=== PATIENT | male | born 1940 | race Caucasian/White ===

== ENCOUNTER 2017-03-29 17:20 | Emergency (ER) | payer MEDICARE ==
[2017-03-29] MEDS ORDERED: Ketorolac 60 MG/2 ML SDV IM ONE (18:24)
--- NOTE | 2017-03-29 18:25 | EDM.PDOC ---
ED HPI GENERAL MEDICAL PROBLEM - General Chief Complaint: Respiratory Problem Stated Complaint: FEVER/FROM CLINIC Time Seen by Provider: 03/29/17 18:14 Source of Information: Reports: Patient, RN Notes Reviewed History Limitations: Reports: No Limitations - History of Present Illness INITIAL COMMENTS - FREE TEXT/NARRATIVE: 76-year-old gentleman presents emergency department today complaint of fever and body aches he's been ill just since this morning he has had a cough denies shortness of breath denies any tickborne illness Headache Pain Score (Numeric/FACES): 4 - Related Data Allergies Allergy/AdvReac Type Severity Reaction Status Date / Time oxycodone [From Percodan] Allergy Cannot Verified 03/29/17 17:49 Remember Home Meds: Home Meds Insulin Glargine,Hum.Rec.Anlog [Lantus Solostar] 46 units SUBCUT DAILY 06/02/16 [History] Losartan [Cozaar] 50 mg PO DAILY 06/02/16 [History] Metoprolol Succinate [Toprol XL] 50 mg PO DAILY 06/02/16 [History] atorvaSTATin [Lipitor] 20 mg PO DAILY 06/02/16 [History] metFORMIN [Glucophage XR] 500 mg PO BID 06/02/16 [History] Apixaban [Eliquis] 1 tab PO DAILY 03/29/17 [History] Past Medical History HEENT History: Reports: Impaired Vision Cardiovascular History: Reports: Afib, High Cholesterol Musculoskeletal History: Reports: Fracture Other Musculoskeletal History: colar bone Neurological History: Reports: Neuropathy, Peripheral Endocrine/Metabolic History: Reports: Diabetes, Type II Dermatologic History: Reports: Decubitus Ulcer - Infectious Disease History Infectious Disease History: Reports: Chicken Pox, Measles, Mumps - Past Surgical History HEENT Surgical History: Reports: Tonsillectomy GI Surgical History: Reports: Colonoscopy Dermatological Surgical History: Reports: Skin Biopsy Social & Family History - Tobacco Use Smoking Status *Q: Never Smoker Second Hand Smoke Exposure: No - Caffeine Use Caffeine Use: Reports: Coffee, Soda - Alcohol Use Days Per Week of Alcohol Use: 2 Number of Drinks Per Day: 1 Total Drinks Per Week: 2 - Recreational Drug Use Recreational Drug Use: No ED ROS GENERAL - Review of Systems Review Of Systems: See Below Constitutional: Reports: Fever, Chills, Weakness, Other (Body aches ) HEENT: Reports: No Symptoms Respiratory: Reports: Wheezing Cardiovascular: Reports: No Symptoms GI/Abdominal: Reports: No Symptoms : Reports: No Symptoms Musculoskeletal: Reports: No Symptoms Skin: Reports: No Symptoms Neurological: Reports: No Symptoms ED EXAM, GENERAL - Physical Exam Exam: See Below Free Text/Narrative:: General: Male, ill-appearing, alert and oriented x3 HEENT: head is atraumatic normocephalic, eyes pupils equal round reactive to light, sclera clear no conjunctivitis appreciated. Ears tympanic membranes clear and [place] landmarks and light reflex are present bilaterally canals are clear. Nose no septal deviation, nares are clear, no blood present. Mouth mucosa is moist and pink no erythema or exudate noted in soft palate, tongue is midline uvula is midline , dentition is intact. Neck: Supple no thyromegaly no tracheal deviation. Nodes: Cervical nodes subclavicular nodes nontender no palpable lymphadenopathy noted. Lungs: clear to auscultation bilaterally with symmetrical respirations, no adventitious noise appreciated. CV: Irregularly irregular rate and rhythm S1 and S2 appreciated no murmurs rubs or gallops noted. Abdomen: Soft, nontender, no palpable masses or organomegaly appreciated, no distention no guarding bowel sounds are present, . Neuro: Cranial nerves II through XII grossly intact Skin: Warm and dry, intact Extremities: No lower extremity edema appreciated, Course - Vital Signs Last Recorded V/S: Last Vital Signs Temp 101.1 F H 03/29/17 18:03 Pulse 98 03/29/17 18:03 Resp 16 03/29/17 18:03 BP 147/82 H 03/29/17 18:03 Pulse Ox 93 L 03/29/17 18:03 - Orders/Labs/Meds Orders: Active Orders 24 hr Category Date Time Status Chest 2V [CR] Urgent Exams 03/29/17 18:21 Taken Labs: Laboratory Tests 03/29/17 03/29/17 03/29/17 Range/Units 18:30 18:30 18:30 WBC 18.3 H (4.5-11.0) K/uL RBC 4.84 (4.30-5.90) M/uL Hgb 15.0 (12.0-15.0) g/dL Hct 44.8 (40.0-54.0) % MCV 93 (80-98) fL MCH 31 (27-31) pg MCHC 34 (32-36) % Plt Count 177 (150-400) K/uL Neut % (Auto) 88 H (36-66) % Lymph % (Auto) 5 L (24-44) % [place] % (Auto) 7 H (2-6) % Eos % (Auto) 0 L (2-4) % Baso % (Auto) 0 (0-1) % Sodium 139 L (140-148) mmol/L Potassium 3.8 (3.6-5.2) mmol/L Chloride 103 (100-108) mmol/L Carbon Dioxide 32 (21-32) mmol/L Anion Gap 7.8 (5.0-14.0) mmol/L BUN 18 (7-18) mg/dL Creatinine 1.3 (0.8-1.3) mg/dL Est Cr Clr Drug Dosing 58.68 mL/min Estimated GFR (MDRD) 54 L (>60) Glucose 173 H (74-106) mg/dL Lactic Acid 1.1 (0.4-2.0) mmol/L Calcium 9.0 (8.5-10.1) mg/dL Total Bilirubin 1.3 H (0.2-1.0) mg/dL AST 26 (15-37) U/L ALT 26 (12-78) U/L Alkaline Phosphatase 104 (46-116) U/L Total Protein 7.1 (6.4-8.2) g/dL Albumin 3.7 (3.4-5.0) g/dL Globulin 3.4 (2.3-3.5) g/dL Albumin/Globulin Ratio 1.1 L (1.2-2.2) Urine Color Urine Appearance Urine pH (4.5-8.0) Ur Specific [place] (1.008-1.030) Urine Protein (NEGATIVE) mg/dL Urine Glucose (UA) (NEGATIVE) mg/dL Urine Ketones (NEGATIVE) mg/dL Urine Occult Blood (NEGATIVE) Urine Nitrite (NEGAITVE) Urine Bilirubin (NEGATIVE) Urine Urobilinogen (NORMAL) mg/dL Ur Leukocyte Esterase (NEGATIVE) Urine RBC (0-5) Urine WBC (0-5) Ur Epithelial Cells Amorphous Sediment Urine Bacteria Urine Mucus 03/29/17 Range/Units 18:33 WBC (4.5-11.0) K/uL RBC (4.30-5.90) M/uL Hgb (12.0-15.0) g/dL Hct (40.0-54.0) % MCV (80-98) fL MCH (27-31) pg MCHC (32-36) % Plt Count (150-400) K/uL Neut % (Auto) (36-66) % Lymph % (Auto) (24-44) % [place] % (Auto) (2-6) % Eos % (Auto) (2-4) % Baso % (Auto) (0-1) % Sodium (140-148) mmol/L Potassium (3.6-5.2) mmol/L Chloride (100-108) mmol/L Carbon Dioxide (21-32) mmol/L Anion Gap (5.0-14.0) mmol/L BUN (7-18) mg/dL Creatinine (0.8-1.3) mg/dL Est Cr Clr Drug Dosing mL/min Estimated GFR (MDRD) (>60) Glucose (74-106) mg/dL Lactic Acid (0.4-2.0) mmol/L Calcium (8.5-10.1) mg/dL Total Bilirubin (0.2-1.0) mg/dL AST (15-37) U/L ALT (12-78) U/L Alkaline Phosphatase (46-116) U/L Total Protein (6.4-8.2) g/dL Albumin (3.4-5.0) g/dL Globulin (2.3-3.5) g/dL Albumin/Globulin Ratio (1.2-2.2) Urine Color Yellow Urine Appearance Clear Urine pH 7.0 (4.5-8.0) Ur Specific [place] 1.015 (1.008-1.030) Urine Protein Negative (NEGATIVE) mg/dL Urine Glucose (UA) Normal (NEGATIVE) mg/dL Urine Ketones 15 H (NEGATIVE) mg/dL Urine Occult Blood Negative (NEGATIVE) Urine Nitrite Negative (NEGAITVE) Urine Bilirubin Negative (NEGATIVE) Urine Urobilinogen 4 (NORMAL) mg/dL Ur Leukocyte Esterase Negative (NEGATIVE) Urine RBC 0-5 (0-5) Urine WBC 0-5 (0-5) Ur Epithelial Cells Rare Amorphous Sediment Not seen Urine Bacteria Not seen Urine Mucus Not seen Meds: Medications Discontinued Medications Generic Name Dose Route Start Last Admin Trade Name James PRN Reason Stop Dose Admin Ketorolac Tromethamine 60 mg 03/29/17 18:24 03/29/17 18:39 Toradol IM 03/29/17 18:25 60 mg ONETIME ONE Administration Departure - Departure Time of Disposition: 19:10 Disposition: Home, Self-Care 01 Condition: Good Clinical Impression: Body aches - Discharge Information Forms: ED Department Discharge Additional Instructions: Take full course of antibiotics, use Tylenol and Motrin as needed for fever and body aches, please follow-up with your primary care provider upon return home - My Orders Last 24 Hours: My Active Orders 03/29/17 18:21 Chest 2V [CR] Urgent - Assessment/Plan Last 24 Hours: My Active Orders 03/29/17 18:21 Chest 2V [CR] Urgent Plan: Assessment Acuity = acute Site and laterality = cough, body aches Etiology = suspicious for tickborne illness Manifestations = none Location of injury = Home Lab values = WBC elevated 18.3 consistent leukocytosis 88% neutrophils sodium low at 139 consistent hyponatremia bilirubin elevated 1.3 consistent with hyperbilirubinemia, urinalysis unremarkable, chest x-ray I did review films myself I cannot appreciate any acute process, the official read from radiology is pending Plan I did review lab work and chest x-ray results with him and place him on doxycycline 100 mg by mouth twice a day 14 days he is to follow-up with his primary care provider upon return home Patient was in agreement with the plan all questions were answered, they were instructed to return to the emergency department or call for worsening symptoms. This note was dictated using [employer] voice recognition software please call with any questions.
[2017-03-29 19:12] VITALS: BP 169/94
--- NOTE | 2017-04-01 09:33 | CR ---
Chest 2V HISTORY: Wheezing COMPARISON: 06/02/2016. FINDINGS: Cardiac size and pulmonary vessels normal. No focal infiltrates or effusions.
== END 2017-03-29 19:26 | disposition home or self-care (01) ==
LOC: JP.ED 17:20
DX: R52 Pain, unspecified (principal); H54.7 Unspecified visual loss; I48.91 Unspecified atrial fibrillation; E78.00 Pure hypercholesterolemia, unspecified; E11.9 Type 2 diabetes mellitus without complications; Z98.890 Other specified postprocedural states; Z88.8 Allergy status to other drugs, medicaments and biological substances; Z79.899 Other long term (current) drug therapy; Z79.4 Long term (current) use of insulin
CPT/HCPCS: 36415; 71020; 80053; 81001; 83605; 85025; 96372; 99284; J1885; 99283